=== PATIENT | female | born 1985 | race Caucasian/White ===

== ENCOUNTER 2016-09-22 16:01 | Emergency (ER) | payer OTHER ==
[~2016-09-22] VITALS: Ht 157.5 cm; Wt 78.4 kg
[~2016-09-22 16:01] MED LIST: ACETAMINOPHEN-1 EAC1 PO; ALPRAZOLAM0.5 MG PO; AMOXICILLIN875 MG PO; BUPROPION HCL100 M1 PO; BUSPAR30 MG PO; CITALOPRAM HBR40 MG PO; DESYREL100 MG PO; NOHOMEMEDS; PEN-VEE K,VEET500 MG PO; TYLENOL WITH C1 EACH PO; ULTRAM50 MG PO
[2016-09-22] MEDS ORDERED: KEFLEX500 MG PO (18:55)
[2016-09-22] MEDS ORDERED: PERCOCET 5/31 TABLET PO (18:55)
[2016-09-22 19:15] VITALS: BP 118/83
== END 2016-09-22 19:15 | disposition home or self-care (01) ==
LOC: EME 16:01
DX: N75.0 Cyst of Bartholin's gland (principal)
CPT/HCPCS: 99281; 99284

== ENCOUNTER 2016-10-30 19:25 | Emergency (ER) | payer OTHER ==
[~2016-10-30] VITALS: Ht 157.5 cm; Wt 78.7 kg
[~2016-10-30 19:25] MED LIST changes: +KEFLEX500 MG PO; +PERCOCET 5/31 TABLET PO
[2016-10-30] MEDS ORDERED: PEN-VEE K,VEET500 MG PO (20:56)
[2016-10-30] MEDS ORDERED: NORCO 5/3251 TABLET PO (20:56)
[2016-10-30 21:04] VITALS: BP 128/72
== END 2016-10-30 21:05 | disposition home or self-care (01) ==
LOC: EME 19:25
DX: K08.89 Other specified disorders of teeth and supporting structures (principal)
CPT/HCPCS: 99281; 99283

== ENCOUNTER 2016-11-17 16:30 | Emergency (ER) | payer OTHER ==
[~2016-11-17] VITALS: Ht 157.5 cm; Wt 77.7 kg
[~2016-11-17 16:30] MED LIST changes: +NORCO 5/3251 TABLET PO
[2016-11-17 16:44] VITALS: BP 120/80
[2016-11-17] MEDS ORDERED: PERIDEX1 ML MM (17:58)
[2016-11-17] MEDS ORDERED: TRAMADOL HCL50 MG PO (17:58)
[2016-11-17] MEDS ORDERED: MOTRIN400 MG PO (18:02)
[2016-11-17] MEDS ORDERED: TORADOL10 MG PO (18:34)
== END 2016-11-17 18:40 | disposition home or self-care (01) ==
LOC: EME 16:30
DX: K04.7 Periapical abscess without sinus (principal); G89.29 Other chronic pain; K08.89 Other specified disorders of teeth and supporting structures; K03.81 Cracked tooth; Z88.6 Allergy status to analgesic agent
CPT/HCPCS: 99281; 99284